=== PATIENT | female | born 1970 | race Caucasian/White ===

== ENCOUNTER 2017-10-12 21:40 | Emergency (ER) | payer OTHER ==
[~2017-10-12] VITALS: Ht 165.1 cm; Wt 69.1 kg
[2017-10-12 21:43] VITALS: BP 130/66; TEMP 97.5
[2017-10-12] MEDS ORDERED: LEXAPRO 10MG10 MG PO (22:05)
[2017-10-12] MEDS ORDERED: SINGULAIR 110 MG/TAB PO (22:06)
[2017-10-12] MEDS ORDERED: NEURONTIN100 MG/CAP PO (22:06)
[2017-10-12] MEDS ORDERED: AMITRIPTYLINE H25 M1 PO (22:06)
[2017-10-12 22:31] LABS: COLLECTION METHOD CLEAN CATCH
[2017-10-12 22:33] LABS: BASO # 0.1 (0.0-0.2); BASO % 0.6 % (0.0-2.0); EOS # 0.1 (0.0-0.7); EOS % 0.5 % (0-4.0); GRAN # 10.5 (1.4-6.5); GRAN % 79.6 % (42.2-75.2); HEMATOCRIT 39.6 % (37.0-47.0); HEMOGLOBIN 13.3 g/dl (12.5-16.0); LYMPH # 1.9 (1.2-3.4); LYMPH % 14.1 % (20.0-51.0); MEAN CELL VOLUME 89 fl (80.0-100.0); MEAN CORPUSCULAR HEMOGLOBIN 30 pg (27.0-31.0); MEAN CORPUSCULAR HGB CONC 34 g/dl (33.0-37.0); MEAN PLATELET VOLUME 10.1 fl (7.4-10.4); MONO # 0.6 (0.1-0.6); MONO % 4.9 % (1.7-9.3); PLATELET COUNT 260 K/mm3 (130-400); RED BLOOD COUNT 4.43 M/mm3 (4.10-5.30); REDCELL DISTRIBUTION WIDTH-CV 12.5 % (11.5-14.5)
[2017-10-12 22:37] LABS: MUCOUS Present /lpf; PH 6 (5-8); SQUAMOUS EPITHELIAL 0-2 /hpf; URINE APPEARANCE Cloudy; URINE BACTERIA None Seen /hpf; URINE BILIRUBIN Negative (NEGATIVE); URINE BLOOD Negative (NEGATIVE); URINE COLOR Amber; URINE GLUCOSE Negative (NEGATIVE); URINE KETONE Negative (NEGATIVE); URINE LEUKOCYTE ESTERASE Negative (NEGATIVE); URINE NITRATE Negative (NEGATIVE); URINE PROTEIN(semi-quant) Negative (NEGATIVE); URINE RBC 0-2 /hpf; URINE UROBILINOGEN Negative (NEGATIVE)
[2017-10-12 22:45] LABS: ALBUMIN 4.3 gm/dL (3.5-5.0); BILIRUBIN,TOTAL 0.4 mg/dL (0.0-1.0); CALCIUM 9.8 mg/dL (8.4-10.2); CREATININE, serum 0.68 mg/dL (0.52-1.25); POTASSIUM 3.9 mmol/L (3.4-5.0); TOTAL PROTEIN 7.8 gm/dL (6.4-8.2)
[2017-10-12] MEDS ORDERED: ZOFRAN 4MG T4 MG/TAB PO (23:12)
[2017-10-12 23:42] VITALS: PULSE 85
== END 2017-10-12 23:42 | disposition home or self-care (01) ==
LOC: COL.ER 21:40
PROVIDERS: Emergency Medicine
DX: R10.31 Right lower quadrant pain (principal); R19.7 Diarrhea, unspecified; R11.2 Nausea with vomiting, unspecified; Z87.19 Personal history of other diseases of the digestive system; Z90.49 Acquired absence of other specified parts of digestive tract; Z87.891 Personal history of nicotine dependence
CPT/HCPCS: J2270; J2405; J7030; Q9967

== ENCOUNTER → 2019-05-24 | Outpatient (CLI) | payer OTHER ==
[~2019-05-24] MED LIST: AMITRIPTYLINE H25 M1 PO; LEXAPRO 10MG10 MG PO; NEURONTIN100 MG/CAP PO; SINGULAIR 110 MG/TAB PO; ZOFRAN 4MG T4 MG/TAB PO
== END ==
LOC: MHCPAIN 15:00
DX: M54.12 Radiculopathy, cervical region (principal); M47.812 Spondylosis without myelopathy or radiculopathy, cervical region
CPT/HCPCS: G0463

== ENCOUNTER → 2019-06-08 | Outpatient (CLI) | payer OTHER | LOC: MHCPAIN 15:10 | DX: M54.12 Radiculopathy, cervical region (principal) | CPT/HCPCS: J0461; J1100; J7030; Q9967 ==

== ENCOUNTER 2019-12-16 13:48 | Emergency (ER) | payer OTHER ==
[~2019-12-16] VITALS: Ht 165.1 cm; Wt 68.2 kg
[2019-12-16 13:52] VITALS: TEMP 98.5
[2019-12-16 15:01] LABS: BASO # 0.1 (0.0-0.2); BASO % 0.5 % (0.0-2.0); EOS # 0.3 (0.0-0.7); EOS % 2.2 % (0-4.0); GRAN # 9.6 (1.4-6.5); GRAN % 76.1 % (42.2-75.2); HEMATOCRIT 41.3 % (37.0-47.0); HEMOGLOBIN 13.7 g/dl (12.5-16.0); LYMPH # 1.9 (1.2-3.4); LYMPH % 15.4 % (20.0-51.0); MEAN CELL VOLUME 91 fl (80.0-100.0); MEAN CORPUSCULAR HEMOGLOBIN 30 pg (27.0-31.0); MEAN CORPUSCULAR HGB CONC 33 g/dl (33.0-37.0); MEAN PLATELET VOLUME 9.6 fl (7.4-10.4); MONO # 0.7 (0.1-0.6); MONO % 5.2 % (1.7-9.3); PLATELET COUNT 276 K/mm3 (130-400); RED BLOOD COUNT 4.53 M/mm3 (4.10-5.30)
[2019-12-16 15:16] LABS: ALANINE AMINOTRANSFERASE 18 U/L (4-34); ALBUMIN 3.9 gm/dL (3.5-5.0); ALKALINE PHOSPHATASE 99 U/L (50-136); ANION GAP 4 mmol/L (7-16); AST,SGOT 49 U/L (15-37); BILIRUBIN,TOTAL 0.5 mg/dL (0.0-1.0); BLOOD UREA NITROGEN 11 mg/dL (7-17); CALCIUM 9.3 mg/dL (8.4-10.2); CARBON DIOXIDE 28 mmol/L (22-30); CHLORIDE 104 mmol/L (98-107); CREATININE, serum 0.72 (0.52-1.25); GLUCOSE 106 mg/dL (74-106); LIPASE 45 U/L (23-300); POTASSIUM 4.1 mmol/L (3.4-5.0); SODIUM 136 mmol/L (137-145); TOTAL PROTEIN 6.9 gm/dL (6.4-8.2)
[2019-12-16 15:37] LABS: TROPONIN-I < 0.012 ng/mL (0.000-0.035)
[2019-12-16] MEDS ORDERED: NORCO 325 MG-51 TAB PO (16:43)
[2019-12-16] MEDS ORDERED: FLEXERIL 1010 MG/TAB PO ×2 (16:43→17:08)
[2019-12-16] MEDS ORDERED: CRUTCHES MC ×2 (16:44→17:08)
[2019-12-16 17:03] VITALS: BP 96/65; PULSE 78
== END 2019-12-16 17:13 | disposition home or self-care (01) ==
LOC: COL.ER 13:48
PROVIDERS: Emergency Medicine
DX: S32.10XA Unspecified fracture of sacrum, initial encounter for closed fracture (principal); S20.211A Contusion of right front wall of thorax, initial encounter; S60.222A Contusion of left hand, initial encounter; S20.319A Abrasion of unspecified front wall of thorax, initial encounter; R40.2412 Glasgow coma scale score 13-15, at arrival to emergency department; Z90.710 Acquired absence of both cervix and uterus; V86.59XA Driver of other special all-terrain or other off-road motor vehicle injured in nontraffic accident, initial encounter
CPT/HCPCS: J2405; J3010; J7030; Q9967